=== PATIENT | female | born 1980 | race Caucasian/White ===

== ENCOUNTER 2018-01-04 15:56 | Observation (INO) | END 2018-01-05 17:15 | disposition home or self-care (01) ==

== ENCOUNTER 2018-07-01 07:33 | Day surgery (SDC) | payer OTHER ==
[~2018-07-01] VITALS: Ht 167.6 cm; Wt 73.6 kg
[2018-07-01] VITALS (14 sets, daily range): BP systolic 106–124; BP diastolic 62–75; PULSE 80–94; RESP 12–23; Ht 167.6 cm; Wt 73.6 kg
[~2018-07-01 07:33] MED LIST: DEXAMETHASONE 4 MG/ML 5 ML INJ ONE; HYDR-4011 PO; METF500T24 PO; NOL20 PO
[2018-07-01] MEDS ORDERED: SOD CHLORIDE 0.9% 1,000 ML IV SCH (08:00)
[2018-07-01] MEDS ORDERED: CEFAZOLIN 2 GM/50 ML (PMX) 50 ML IVPB ONE (08:00)
[2018-07-01] MEDS ORDERED: ACETAMINOPHEN 500 MG TAB PO ONE (09:00)
[2018-07-01] MEDS ORDERED: LEVO75TA65 PO (10:30)
[2018-07-01] MEDS ORDERED: NOL20 PO (10:31)
[2018-07-01] MEDS ORDERED: METF500T24 PO (10:31)
--- NOTE | 2018-07-01 11:41 | PREAC ---
Date/Time of Note Date/Time of Note DATE: 07/01/18 TIME: 11:39 Anesthesia Eval and Record Evaluation Time Pre-Procedure Interview DATE: 07/01/18 TIME: 11:39 Age 38 Sex female NPO: 8 hrs Preoperative diagnosis right breast mass Planned procedure right breast needle biopsy Past Medical History Past Medical History: Includes Endo: Diabetes, Hypothyroid Surgery & Anesthesia Issues No known issue Meds Anticoagulation: No Beta Savi within 24 hr: No Reason Beta Savi not given: Pt. not on B-Savi Reported Medications Tamoxifen Citrate* (Tamoxifen Citrate*) 20 Mg Tab, 20 MG PO QHS, TAB 07/01/18 Metformin Hcl* (Metformin Hcl*) 500 Mg Tablet, 500 MG PO QPM, #30 TAB 07/01/18 Levothyroxine Sodium* (Levoxyl*) 75 Mcg Tablet, 75 MCG PO QHS, #30 TAB 07/01/18 Discontinued Reported Medications Hydrocodone/Acetaminophen ([place] 5-325 Tablet) 1 Each Tablet, 1 EACH PO Q6 PRN for PAIN, TAB 01/05/18 Metformin Hcl* (Metformin Hcl*) 500 Mg Tablet, 500 MG PO WITH BREAKFAST, #30 TAB 01/04/18 Tamoxifen Citrate* (Tamoxifen Citrate*) 20 Mg Tab, 20 MG PO DAILY, TAB 01/04/18 Current Medications Sodium Chloride 1,000 ml @ 75 mls/hr [id number] IV ; Start 07/01/18 at 08:00; Stop 07/01/18 at 21:19 Meds reviewed: Yes Allergies Coded Allergies: No Known Drug Allergies (Unverified Allergy, Unknown, 07/01/18) Allergies Reviewed: Yes Labs/Studies Labs Reviewed: Reviewed by anesthesiologist test: Negative Pre-procedure Exam Last vitals Vital Signs Date Temp Pulse Resp B/P (MAP) Pulse Ox O2 O2 Flow FiO2 Time Delivery Rate 07/01/18 96.9 85 16 106/74 99 Room Air 10:55 (85) Airway: Adequate mouth opening Mallampati: Mallampati I Teeth: Abnormal (Pt has missing teeth on bottom right) Lung: Normal Heart: Normal ASA Physical Status ASA physical status: 2 Emergency: None Planned Anesthetic General/MAC: ETT Pre-operative Attestations Prior to commencing anesthesia and surgery, the patient was re-evaluated, there was verification of: *The patient's identity *The results of appropriate recent lab work and preoperative vital signs *The above evaluation not changing prior to induction *Anesthetic plan, risk benefits, alternative and complications discussed with patient/family; questions answered; patient/family understands, accepts and wishes to proceed. LADI HICKS Jul 01, 2018 11:41
[2018-07-01] MEDS ORDERED: MEPERIDINE 25 MG INJ IV PRN (12:30)
[2018-07-01] MEDS ORDERED: FENTAnyl 50 MCG/ML VIAL IV PRN ×2 (12:30)
[2018-07-01] MEDS ORDERED: HYDROmorphONE 1 MG/5 ML IV SYRINGE IV PRN ×2 (12:30)
[2018-07-01] MEDS ORDERED: ONDANSETRON 4 MG INJ IV PRN (12:30)
[2018-07-01] MEDS ORDERED: hydrALAzine 20 MG INJ IV PRN (12:30)
[2018-07-01] MEDS ORDERED: LABETALOL HCL 20MG INJ IV PRN (12:30)
[2018-07-01] MEDS ORDERED: METOCLOPRAMIDE 10 MG INJ IV PRN (12:30)
[2018-07-01] MEDS ORDERED: MIDAZOLAM 1 MG/ML 2 ML INJ ONE (13:08)
[2018-07-01] MEDS ORDERED: PROPOFOL 100 ML ONE (13:08)
[2018-07-01] MEDS ORDERED: LIDOCAINE 100 MG SYRINGE ONE (13:08)
[2018-07-01] MEDS ORDERED: ROCURONIUM 50 MG INJ ONE (13:08)
[2018-07-01] MEDS ORDERED: FENTAnyl 50 MCG/ML VIAL ONE (13:08)
[2018-07-01] MEDS ORDERED: CEFAZOLIN 1 GM INJ ONE (13:08)
[2018-07-01] MEDS ORDERED: ONDANSETRON 4 MG INJ ONE (13:09)
[2018-07-01] MEDS ORDERED: SUGAMMADEX SODIUM 200 MG/2 ML VIAL IV ONE (13:09)
[2018-07-01] MEDS ORDERED: PHENYLephrine (100 MCG/ML) 5ML SYG ONE (13:55)
--- NOTE | 2018-07-01 14:19 | PAC ---
Date/Time of Note Date/Time of Note DATE: 07/01/18 TIME: 14:19 Post-Anesthesia Notes Post-Anesthesia Note Last documented vital signs Vital Signs Date Temp Pulse Resp B/P (MAP) Pulse Ox O2 O2 Flow FiO2 Time Delivery Rate 07/01/18 96.9 85 16 106/74 99 Room Air 10:55 (85) Activity: WNL Respiratory function: WNL Cardiovascular function: WNL Mental status: Baseline Pain reasonably controlled: Yes Hydration appropriate: Yes Nausea/Vomiting absent: Yes LADI HICKS Jul 01, 2018 14:19
--- NOTE | 2018-07-01 14:20 | OPR ---
DATE OF OPERATION: 07/01/2018 PREOPERATIVE DIAGNOSIS: Atypical ductal carcinoma, right breast. POSTOPERATIVE DIAGNOSIS: Atypical ductal carcinoma, right breast. OPERATION PERFORMED: Right needle-directed partial mastectomy. ANESTHESIA: General. ANESTHESIOLOGIST: Nurse optometrist president/practice owner, Kris Osman CRNA SURGEON: Josse Mueller MD PATENT CHEMIST: None. INDICATIONS FOR PROCEDURE: The patient is a 38-year-old female who was previously treated for invasi ve cancer of her right breast with neoadjuvant chemotherapy and she has done well from the treatment. She has been undergoing surveillance with mammography and ultrasonography. She was found to have s uspicious calcifications in the right breast. Core biopsy revealed atypical ductal hyperplasia and c omplete excisional biopsy was recommended. She consented and was scheduled for surgery. DESCRIPTION OF PROCEDURE: On the morning of surgery, the patient presented to [facility] where she underwent localization of the lesion performed by attending radiologist, Dr. Harley Estevez. Subsequently, she was brought to the operating theater, placed under general a nesthesia. The right breast was prepped and draped in usual sterile fashion. The localization wire was in at the border of the outer upper and outer lower quadrant approximately 3 to 4 cm from nipple areolar border. A curvilinear incision was made in this area. Subcutaneous tissue was dissected wit h cautery. Skin edges were then elevated with skin hooks and wide circumferential dissection of the tissue associated with the wire then took place using cautery. Specimen was elevated, transected, or iented and sent for radiographic confirmation of capture. Capture was confirmed. Specimen was then sent for permanent pathologic analysis. The wound was irrigated. Minimal bleeding was controlled wi th cautery and the skin was then reapproximated with a 4-0 Vicryl suture in subcuticular fashion and Dermabond was applied. The patient tolerated procedure well. Estimated blood loss was 20 mL. There were no complications and the patient was transported in stable condition to recovery room where cir cumferential compression dressing was applied. Dictated By: JOSSE MUELLER MD TL/GENIA Conf#: [id number] DID#: [id number]
--- NOTE | 2018-07-01 14:22 | SIPON ---
Date/Time of Note Date/Time of Note DATE: 07/01/18 TIME: 14:21 Operative Report Preoperative Diagnosis Atypical ductal hyperplasia right breast Postoperative Diagnosis Same Operation/Procedure Performed Right needle directed partial mastectomy Surgeon see signature line clinical medical assistant None Anesthesia: general Estimated blood loss: 10 - 50 ml's Transfusion Required none Specimen Right breast specimen Grafts/Implants none Complications none JULIO CALLAWAY MD Jul 01, 2018 14:22
[2018-07-01] MEDS ORDERED: HYDROCODONE/APAP (7.5/325) TAB PO PRN ×2 (14:30)
== END 2018-07-01 15:50 | disposition home or self-care (01) ==
LOC: SDS 07:33
PROVIDERS: ATTEND Surgery Surgical Oncology
DX: C50.911 Malignant neoplasm of unspecified site of right female breast (principal); E11.9 Type 2 diabetes mellitus without complications; E03.9 Hypothyroidism, unspecified
CPT/HCPCS: 19301; 82962; 84703; 88307; J0690; J1100; J2001; J2250; J2405; J3010; Z7512; Z7610; J2370